=== PATIENT | male | born 1955 | race Caucasian/White ===

== ENCOUNTER 2018-04-28 08:24 | Day surgery (SDC) | payer OTHER, MEDICARE ==
[2018-04-17 11:24] VITALS: BMI 23.6
[2018-04-28] MEDS ORDERED: BUPIVACAINE HCL/EPINEPHRINE/PF 30 ML VIAL IJ ONE (09:55)
[2018-04-28] MEDS ORDERED: DEXAMETHASONE SOD PHOSPHATE/PF 10 MG/ML SDV ONE (10:02)
[2018-04-28] MEDS ORDERED: MIDAZOLAM HCL 2 MG/2 ML SINGLE DOSE VIAL ONE (10:03)
[2018-04-28] MEDS ORDERED: ROPIVACAINE HCL 0.5% 30ML VIAL ONE (10:03)
--- NOTE | 2018-04-28 10:29 | HP ---
History & Physical Update - History History: No Change - Physical Physical: No Change - Assessment Assessment: No Change - Plan Plan: No Change (H&P in chart from 04/24/18)
[2018-04-28] MEDS ORDERED: PROPOFOL 20 ML ONE ×4 (10:35)
[2018-04-28] MEDS ORDERED: LIDOCAINE HCL/PF 2% SDV 5ML VIAL ONE (10:37)
[2018-04-28] MEDS ORDERED: ceFAZolin SODIUM 1 GM VIAL ONE (10:37)
[2018-04-28] MEDS ORDERED: ONDANSETRON 4 MG/2 ML VIAL ONE (10:37)
[2018-04-28] MEDS ORDERED: KETOROLAC TROMETHAMINE 30 MG/1 ML VIAL ONE (10:37)
[2018-04-28] MEDS ORDERED: DEXAMETHASONE SOD PHOSPHATE 4 MG/1 ML VIAL ONE ×2 (10:37→11:00)
[2018-04-28] MEDS ORDERED: ePHEDrine SULFATE 50 MG/1 ML AMPULE ONE (11:38)
[2018-04-28] MEDS ORDERED: oxyCODONE HCL 5 MG TABLET PO PRN ×2 (12:09→13:19)
[2018-04-28] MEDS ORDERED: oxyCODONE HCL 10 MG SUSTAINED ACTING TABLET PO ONE (12:09)
--- NOTE | 2018-04-28 12:17 | DS ---
Physical Examination Vital Signs: Vital Signs Temperature 97.7 F 04/28/18 09:05 Pulse Rate 52 L 04/28/18 09:05 Respiratory Rate 18 04/28/18 09:05 Blood Pressure 134/67 04/28/18 09:05 O2 Sat by Pulse Oximetry (%) 97 04/28/18 09:05 Discharge Summary Reason For Visit: ROTATOR CUFF TEAR, RIGHT SHOULDER Condition: Good - Instructions Diet, Activity, Other Instructions: Post Operative Instructions: Shoulder Arthroscopy Dr Philip Kunz 1. Pain following a Shoulder Arthroscopy is variable and can be significant. Some patients will have more pain than others. You have been provided with a prescription for medication that contains a narcotic. You are not allowed to drive while on this medication. You should take Tylenol (Acetaminophen). when taking the pain medication it will result in an overdose. Feel free to take medications such as Ibuprofen or Naprosyn in addition to the pain medicine if you do not have any problems with the NSAID class of medications. 2. Apply ice to the shoulder for 15 minutes every hour. You may continue this for as many days as necessary. 3. You may find sleeping on an incline (reclining chair) to be more comfortable for the first few days. 4. You must remain in your sling at all times except when showering. The only exception to this is to allow you to stretch your elbow a few times a day to prevent your hand and forearm from swelling. 5. You are not to use your arm to reach for anything, lift anything or carry anything until instructed otherwise. 6. You may remove the bandages in 24 hours. You may shower at that point. 7. Place band-aids on the incisions after your shower.Do not put any creams or lotions on the incision until after the sutures are removed. 8. Please call the office to schedule a visit to have your sutures removed. 9. If for any reason you believe you may have an infection or are concerned, please feel free to call me. I can be reached through our office number 24 hours a day. 10. Please call our office with any questions; we will review the surgical findings during your post-operative visit. Disposition: HOME - Home Medications Comprehensive Discharge Medication List: Ambulatory Orders Aspirin [Aspirin EC] 81 mg PO DAILY 06/12/14 Clonazepam 1 mg PO TID 06/12/14 Losartan/Hydrochlorothiazide [Hyzaar 100-25 Tablet] 1 each PO DAILY 06/12/14 Multivitamins [Multivit ([facility] Formulary)] 1 tab PO DAILY 06/12/14 Oxycodone HCl/Acetaminophen [Percocet 7.5-325 mg Tablet -] 1 - 2 tab PO Q4H PRN 06/12/14 Clopidogrel Bisulfate [Plavix] 75 mg PO DAILY 04/17/18 Metoprolol Succinate 25 mg PO DAILY 04/17/18 Pantoprazole Sodium 40 mg PO DAILY 04/17/18 Pitavastatin Calcium [Livalo] 4 mg PO HS 04/17/18 Trazodone HCl 50 mg PO DAILY 04/17/18 Zolpidem Tartrate [Ambien] 10 mg PO HS 04/17/18
--- NOTE | 2018-04-28 12:17 | OP ---
Operative Note - Note: Operative Date: 04/28/18 Pre-Operative Diagnosis: Right shoulder RCT Operation: RSA, decompression, RCR, Biceps tenodesis Post-Operative Diagnosis: Same as Pre-op Surgeon: Philip Kunz [employer] Scientist: Carline Mitchell Anesthesiologist/DEVELOPMENTAL SPECIALIST: Clinton Mccarthy Anesthesia: General Operative Report Dictated: Yes
[2018-04-28] MEDS ORDERED: DESFLURANE GAS 240 ML BOTTLE IH ONE (12:37)
[2018-04-28] MEDS ORDERED: oxyCODONE HCL 10 MG SUSTAINED ACTING TABLET ONE (13:10)
[2018-04-28] MEDS ORDERED: ONDANSETRON 4 MG/2 ML VIAL IVPUSH PRN (13:19)
[2018-04-28] MEDS ORDERED: LACTATED RINGERS SOLUTION 1,000 ML IV SCH (13:30)
--- NOTE | 2018-04-28 13:34 | SURG ---
Surgery Bobbin Drier Note Bobbin Drier: Carline Mitchell PA-C Date of Service: 04/28/18 Diagnosis: Right shoulder RCT Procedure: RSA, decompression, RCR, Biceps tenodesis I was present for the entirety of the operative procedure. For further detail, please refer to operative report. Visit type - Case Type Case Type: Scheduled - Emergency Emergency Visit: No - New patient This patient is new to me today: Yes Date on this admission: 04/28/18
[2018-04-28 14:15] VITALS: TEMP 97.5
[2018-04-28 14:19] VITALS: BP 128/75; PULSE 66
--- NOTE | 2018-05-01 14:53 | PATH ---
Surgical Pathology Report Patient Name: TIANNA VALLADARES [facility]. Rec. #: [id number] /Age/Gender: 1955 (Age: 62) / M Account: [id number] Location: [facility] Taken: 04/28/2018 Received: 04/28/2018 Reported: 05/01/2018 Physicians: Philip Kunz M.D. Specimen(s) Received RIGHT SHOULDER SHAVINGS Clinical History Rotator cuff tear right shoulder Final Diagnosis SHOULDER, RIGHT, ARTHROSCOPIC SHAVINGS: FIBROSYNOVIAL TISSUE SHOWING REACTIVE HYPERPLASIA, BONE, CARTILAGE AND SKELETAL MUSCLE. Electronically Signed Nain Solares M.D. Gross Description Received in formalin, labeled "right shoulder shavings," is a 3.5 x 3.0 x 0.3 cm. aggregate of arauz-yellow soft tissue fragments. A wireless sales representative portion is submitted in one cassette. /04/28/2018 saudi/04/28/2018
== END 2018-04-28 14:00 | disposition home or self-care (01) ==
LOC: FASU 08:24
PROVIDERS: ATTEND Orthopaedic Surgery
PROC: 0LS14ZZ Reposition Right Shoulder Tendon, Percutaneous Endoscopic Approach (ICD-10-PCS; 2018-04-28)
PROC: 0RNJ4ZZ Release Right Shoulder Joint, Percutaneous Endoscopic Approach (ICD-10-PCS; 2018-04-28)
PROC: 0LQ14ZZ Repair Right Shoulder Tendon, Percutaneous Endoscopic Approach (ICD-10-PCS; principal; 2018-04-28 10:30)
DX: S43.421A Sprain of right rotator cuff capsule, initial encounter (principal); S46.111A Strain of muscle, fascia and tendon of long head of biceps, right arm, initial encounter; X58.XXXA Exposure to other specified factors, initial encounter; Y93.9 Activity, unspecified; Y92.9 Unspecified place or not applicable
CPT/HCPCS: 88304-TC